=== PATIENT | male | born 1985 | race Hispanic/Latino ===

== ENCOUNTER 2016-08-31 20:39 | Emergency (ER) | payer OTHER ==
[2016-08-31 21:14] VITALS: BP 144/83; PULSE 79; RESP 16; TEMP 98.7; O2SAT 98
[2016-08-31 22:22] LABS: BASO % 0.5 % (0.0-2.0); EOS # 0.3 K/uL (0.0-0.7); EOS % 3.2 % (0.0-4.0); HEMATOCRIT 45.6 % (35.0-51.0); LYMPH # 2.2 K/uL (1.0-4.3); MEAN CELL VOLUME 87.1 fl (80.0-94.0); MEAN CORPUSCULAR HEMOGLOBIN 29.8 pg (27.0-31.0); MEAN CORPUSCULAR HGB CONC 34.2 g/dL (33.0-37.0); MEAN PLATELET VOLUME 7.5 fl (7.2-11.7); MONO # 0.8 K/uL (0.0-0.8); MONO % 9.6 % (0.0-10.0); NEUT # 4.9 K/uL (1.8-7.0); NEUT % 59.7 % (50.0-75.0); NRBC % 0.1 % (0.0-0.0); RED CELL DISTRIBUTION WIDTH 13.3 % (11.5-14.5); WHITE BLOOD COUNT 8.2 K/uL (4.8-10.8)
[2016-08-31 22:25] LABS: RBC URINE 1 /hpf (0-3); URINE BILIRUBIN NEGATIVE (NEGATIVE); URINE BLOOD NEGATIVE (NEGATIVE); URINE COLOR YELLOW (YELLOW); URINE GLUCOSE (UA) NEG (Normal); URINE KETONE NEGATIVE (NEGATIVE); URINE LEUKOCYTE ESTERASE NEG Leu/uL (Negative); URINE PROTEIN 30 mg/dL (NEGATIVE); URINE UROBILINOGEN 0.2-1.0 mg/dL (0.2-1.0); WBC URINE < 1 /hpf (0-5)
[2016-08-31 22:33] LABS: ALB/GLOB RATIO 1.3 (1.0-2.1); ALKALINE PHOSPHATASE 76 U/L (38-126); ALT/SGPT 54 U/L (21-72); AST/SGOT 48 U/L (17-59); BILIRUBIN,TOTAL 0.9 mg/dl (0.2-1.3); BLOOD UREA NITROGEN 19 mg/dl (9-20); CALCIUM 9.9 mg/dL (8.4-10.2); CARBON DIOXIDE 30 mmol/L (22-30); CHLORIDE 99 mmol/L (98-107); GFR AFRICAN-AMERICAN > 60; GLUCOSE,RANDOM 102 mg/dL (75-110); POTASSIUM 3.8 MMOL/L (3.6-5.0); SODIUM 141 mmol/l (132-148); TOTAL PROTEIN 8.7 G/DL (6.3-8.2)
[2016-08-31] MEDS ORDERED: Sterile Water 10 ML IV ONE (23:04)
[2016-08-31] MEDS ORDERED: cefTRIAXone (Rocephin) 250 mg Inj ONE (23:05)
[2016-08-31] MEDS: cefTRIAXone (Rocephin) 250 mg Inj IM ONE (23:18)
--- NOTE | 2016-08-31 23:36 | ED PDOC ---
HPI: Male Pain Time Seen by Provider: 08/31/16 21:18 Chief Complaint (Nursing): Groin Pain Chief Complaint (Provider): penile lesions, sore throat History Per: Patient History/Exam Limitations: no limitations Current Symptoms Are (Timing): Still Present Severity: Moderate Associated Symptoms: denies: Fever, Chills, Nausea, Vomiting, Diarrhea, Loss Of Appetite Alleviating Factors: None Additional Complaint(s): 31yo male c/o lesions to penis along with sore throat and ulcers to tongue, started this past weekend has continued and progressed. Denies urinary symptoms , fever, back pain or joint pains. Denies history STDs, states sexually active w female who is in the room and denies symptoms. States he had a past fungal infection to penis after Abx- unclear history. Denies use of condoms or trauma to penis. Past Medical History Reviewed: Historical Data, Nursing Documentation, Vital Signs Vital Signs: Last Vital Signs Temp 98.7 F 08/31/16 21:11 Pulse 79 08/31/16 21:11 Resp 16 08/31/16 21:11 BP 144/83 08/31/16 21:11 Pulse Ox 98 08/31/16 21:11 - Medical History PMH: No Chronic Diseases - Living Arrangements Living Arrangements: Other - Social History Current smoker - smoking cessation education provided: No Drugs: Denies - Home Medications Home Medications: Ambulatory Orders Medication Instructions Recorded Clotrimazole 1% Cream [Lotrimin 1% 15 applic EXT BID #1 tube 08/31/16 CREAM] Doxycycline Hyclate [Doryx] 100 mg PO BID #28 cap 08/31/16 - Allergies Allergies/Adverse Reactions: Allergies Allergy/AdvReac Type Severity Reaction Status Date / Time grass pollen Allergy RASH Verified 08/31/16 21:23 peanut Allergy RASH Verified 08/31/16 21:15 weed pollen Allergy RASH Verified 08/31/16 21:23 Review of Systems ROS Statement: Except As Marked, All Systems Reviewed And Found Negative Constitutional: Negative for: Fever, Chills ENT: Positive for: Mouth Pain, Throat Pain. Negative for: Ear Discharge, Nose Discharge Gastrointestinal: Negative for: Nausea, Vomiting Genitourinary Male: Positive for: Rash, Penile Pain. Negative for: Dysuria, Frequency, Incontinence, Hematuria Skin: Positive for: Rash, Lesions Physical Exam - Reviewed Nursing Documentation Reviewed: Yes Vital Signs Reviewed: Yes - Physical Exam Appears: Positive for: Well, Non-toxic, No Acute Distress Head Exam: Positive for: ATRAUMATIC, NORMAL INSPECTION, NORMOCEPHALIC Skin: Positive for: Normal Color, Warm, DRY Eye Exam: Positive for: EOMI, Normal appearance, PERRL ENT: Positive for: Pharyngeal Erythema, Tonsillar Exudate, Other (ulcers to tip tongue) Neck: Positive for: Normal, Painless ROM Cardiovascular/Chest: Positive for: Regular Rate, Rhythm Respiratory: Positive for: CNT, Normal Breath Sounds Gastrointestinal/Abdominal: Positive for: Bowel Sounds, Soft. Negative for: Tenderness Male Genital Exam: Positive for: lesions (penile lesions along shaft diffuse macular papular w crusting, nontender, balanitis w white discharge along base glans penis; no discharge or blood at meatus, no large chancres). Negative for : testicular tenderness (R), testicular tenderness (L) Back: Positive for: Normal Inspection Extremity: Positive for: Normal ROM Lymphatic: Positive for: Adenopathy (+groin/inguinal b/l) Neurologic/Psych: Positive for: Alert, Oriented, Gait (normal). Negative for: Motor/Sensory Deficits - Laboratory Results Result Diagrams: 08/31/16 22:17 08/31/16 22:17 - ECG O2 Sat by Pulse Oximetry: 98 Medical Decision Making Medical Decision Making: workup initiated for STD concern for systemic given oropharyngeal symptoms and penile symptoms. 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 Discussed possible diagnostic impressions- ?lymphogranuloma venereum? Disposition - Clinical Impression Clinical Impression: Sexually transmitted infection - Patient ED Disposition Is Patient to be Admitted: No Counseled Patient/Family Regarding: Studies Performed, Diagnosis, Need For Followup, Rx Given - Disposition Referrals: Cyn Andres MD [Staff Provider] - Disposition: Routine/Home Disposition Time: 22:30 Condition: STABLE Additional Instructions: Followup with infectious disease doctor in 2 days. Take medication as directed. Prescriptions: Clotrimazole 1% Cream [Lotrimin 1% CREAM] 15 applic EXT BID #1 tube Doxycycline Hyclate [Doryx] 100 mg PO BID #28 cap Instructions: Sexually Transmitted Diseases (ED), Condom Use (ED), Safe Sex (ED )
== END 2016-08-31 23:58 | disposition home or self-care (01) ==
LOC: H.ER 20:39
DX: A64 Unspecified sexually transmitted disease (principal); R07.0 Pain in throat